=== PATIENT | male | born 1990 | race Caucasian/White ===

== ENCOUNTER 2021-07-09 18:12 | Emergency (ER) | payer SELFPAY ==
[~2021-07-09] VITALS: Ht 165.1 cm; Wt 68.0 kg
--- NOTE | 2021-07-09 19:02 | NUR ---
Patient does not wish to proceed with medical care recommended by Dr. Drew Redding. Patient given information related to possible complications, up to and including , which could occur as a result of leaving the hospital at this time. Patient verbalizes understanding of risks involved due to leaving against medical advice. Patient has signed AMA form.
--- NOTE | 2021-07-09 19:03 | NUR ---
paola from home to er bed 12. aaox4. not in resp distress. ambulatory. brought in for palpitation, neck numbeness and tingling after meth use this morning. awaiting md for eval.
[2021-07-09 19:21] VITALS: BP 165/95
== END 2021-07-09 19:21 | disposition left against medical advice (07) ==
LOC: ER 18:15
DX: R07.89 Other chest pain (principal); I10 Essential (primary) hypertension; F15.10 Other stimulant abuse, uncomplicated